=== PATIENT | male | born 1940 | race African-American/Black ===

== ENCOUNTER 2020-11-12 18:24 | Observation (INO) | payer OTHER ==
[~2020-11-12] VITALS: Ht 193 cm; Wt 90.2 kg
[~2020-11-12 18:24] MED LIST: ASPIRIN EC81 M1 PO; AZITHROMYCIN 2250 MG PO; COREG6.25 MG PO; DIABETA 2.5MG2.5 MG PO; DIABETA 5MG TABL5 MG PO; GLIPIZIDE ER5 MG PO; GLUCOPHAGE XR500 MG; GLUCOPHAGE500 MG PO; ISOSORBIDE MONO30 M1 PO; LISINOPRIL20 MG PO; MECLIZINE HCL12.5 MG PO; PRAVASTATIN SOD20 MG PO; PROMETHAZINE-C120 ML PO; TRAMADOL 50 MG50 MG PO
[2020-11-12 18:31] VITALS: BP 152/83
[2020-11-12 19:04] LABS: ABSOLUTE NEUTROPHILS 3.6 thou/uL (1.4-8.2); BASOPHILS 0.9 % (0.0-2.0); EOSINOPHILS 5.1 % (0.0-3.0); HEMATOCRIT 36.7 % (42.0-52.0); HEMOGLOBIN 12.1 gm/dL (14.0-18.0); LYMPHOCYTES 31.5 % (24.0-44.0); MCH 28.3 pg (26.0-34.0); MCHC 32.9 g/dL (28.0-37.0); MCV 86.2 fL (80.0-100.0); MONOCYTES 9.7 % (1.0-8.0); PLATELET COUNT 252 thou/uL (150-400); POLYS 52.8 % (36.0-66.0); RBC 4.25 mil/uL (4.50-6.00); RDW 14.5 % (10.5-14.5); WBC 6.8 thou/uL (4.0-11.0)
[2020-11-12 19:18] LABS: ALBUMIN 3.7 g/dL (3.4-5.0); CREATININE 2.1 mg/dL (0.7-1.3); LIPASE 237 U/L (73-393); POTASSIUM 4.3 mmol/L (3.5-5.1); SGOT 23 U/L (15-37); SGPT 31 U/L (30-65)
[2020-11-12 19:20] LABS: APTT 25.4 Seconds (24.5-32.8); D-DIMER 0.88 ug/mLFEU (0.19-0.50); PROTIME 11.4 Seconds (9.3-11.4)
[2020-11-12 19:26] LABS: ANION GAP 8 mmol/L (7-16); BUN 25 mg/dL (7-18); CALCIUM 9.6 mg/dL (8.5-10.1); CHLORIDE 102 mmol/L (98-107); CO2 28 mmol/L (21-32); GLUCOSE 180 mg/dL (74-106); SODIUM 138 mmol/L (136-145)
[2020-11-12 19:36] LABS: TOTAL BILIRUBIN 0.3 mg/dL (0.2-1.0); TOTAL PROTEIN 8.4 g/dL (6.4-8.2); TROPONIN-I <0.06 ng/mL (<0.06)
[2020-11-12] MEDS ORDERED: GABAPENTIN600 M1 PO (20:41)
[2020-11-12] MEDS ORDERED: FUROSEMIDE 20 M20 MG PO (20:41)
[2020-11-12] MEDS ORDERED: STOOL SOFTENER1 EAC2 PO (20:45)
[2020-11-12 21:03] VITALS: BP 133/77
[2020-11-12] MEDS ORDERED: HUMALOG100 UNIT/1 SUBQ (21:30)
[2020-11-12] MEDS ORDERED: LANTUS SUBQ (21:31)
[2020-11-12] MEDS ORDERED: OZEMPIC0.25 MG/0. SUBQ (23:06)
[2020-11-13 03:07] LABS: ANION GAP 8 mmol/L (7-16); BUN 22 mg/dL (7-18); CALCIUM 8.7 mg/dL (8.5-10.1); CHLORIDE 104 mmol/L (98-107); CO2 28 mmol/L (21-32); CREATININE 2.2 mg/dL (0.7-1.3); GLUCOSE 226 mg/dL (74-106); POTASSIUM 3.9 mmol/L (3.5-5.1); SODIUM 140 mmol/L (136-145)
[2020-11-13 03:15] LABS: CHOLESTEROL 82 mg/dL (<200); HDL CHOLESTEROL 42 mg/dL (>40); LDL CHOLESTEROL 23 mg/dL (<100); TRIGLYCERIDE 85 mg/dL (<150); TROPONIN-I <0.06 ng/mL (<0.06); VLDL 17 mg/dL (<40)
[2020-11-13 03:26] VITALS: BP 136/82
[2020-11-13 03:46] LABS: SERUM ASSESSMENT Clear
--- NOTE | 2020-11-13 07:07 | EKG ---
[address] [address] ELECTROCARDIOGRAM REPORT Name: EZEQUIEL CARDOZA Room #: 357-[facility] IN .R.#: [id number] Admission: 11/12/20 Attend Phys: Jaydon Cruz MD Discharge: Date of : 42 Report #: [id number] [facility] ED Test Date: 2020-11-12 Test Time: 18:38:54 Pat Name: EZEQUIEL CARDOZA Department: Room: [facility] Gender: M Ct Scan Tech: DARRELL : 1940 Requested By: Donte Dhaliwal Order Number: [id number] MD: Yury Wright Measurements Intervals [place] Rate: 88 P: 62 IN: 189 QRS: 36 QRSD: 82 T: 66 QT: 379 QTc: 459 Interpretive Statements Sinus rhythm Left atrial enlargement Compared to ECG 06/23/2014 19:26:07 No significant changes Electronically Signed On 11-13-2020 7:07:39 PUPPET ENGINEER by Yury Wright [email or web address] <ELECTRONICALLY SIGNED> By: Yury Wright MD, [facility] 11/13/20 [id number] Yury Wright MD, FACC /EPI
[2020-11-13 07:18] VITALS: BP 138/85
--- NOTE | 2020-11-13 09:42 | EKG ---
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
[2020-11-13 10:20] VITALS: BP 138/85
--- NOTE | 2020-11-13 15:35 | EKG ---
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 AKHTAR : 1940 Requested By: Jaydon Cruz Order Number: [id number] MD: Yury Wright Measurements Intervals [place] Rate: 81 P: 56 AL: 206 QRS: 21 QRSD: 83 T: 52 QT: 390 QTc: 453 Interpretive Statements Sinus rhythm Probable left atrial enlargement Baseline wander in lead(s) I,III,aVL,aVF Compared to ECG 11/12/2020 18:38:54 No significant changes Electronically Signed On 11-13-2020 15:34:49 DRAMA CRITIC by Yury Wright [email or web address] <ELECTRONICALLY SIGNED> By: Yury Wright MD, FACC 11/13/20 1534 31 31 Yury Wright MD, FAC /EPI
[2020-11-14 01:06] LABS: GLYCOHEMOGLOBIN (HGB A1C) 7.5 % (4.8-5.6)
== END 2020-11-13 11:21 | disposition home or self-care (01) ==
LOC: ER 18:24 → EROBS 20:14 → 3W 20:14
PROVIDERS: Emergency Medicine; Nurse Practitioner Family; ADMIT Hospitalist; ATTEND Hospitalist
DX: R07.89 Other chest pain (principal); I12.9 Hypertensive chronic kidney disease with stage 1 through stage 4 chronic kidney disease, or unspecified chronic kidney disease; E11.22 Type 2 diabetes mellitus with diabetic chronic kidney disease; N18.9 Chronic kidney disease, unspecified; N17.9 Acute kidney failure, unspecified; E78.00 Pure hypercholesterolemia, unspecified; I25.10 Atherosclerotic heart disease of native coronary artery without angina pectoris; Z95.1 Presence of aortocoronary bypass graft; Z79.82 Long term (current) use of aspirin; Z79.4 Long term (current) use of insulin; Z79.899 Other long term (current) drug therapy; Z87.891 Personal history of nicotine dependence; Z86.73 Personal history of transient ischemic attack (TIA), and cerebral infarction without residual deficits; Z86.19 Personal history of other infectious and parasitic diseases
CPT/HCPCS: 10879